=== PATIENT | female | born 1955 | race Two or more races ===

== ENCOUNTER 2019-01-10 09:30 | Outpatient (AMBR) | payer SELFPAY ==
--- NOTE | 2018-12-13 12:52 | PT.ODAYNRPT ---
PT Outpatient Daily Note Date of Service: December 13, 2018 OP Daily Note Visit Reasons: pain Outpatient Physical Therapy Treatment Date: 12/13/18 Subjective: The knee is doing well but hurts on the outside part when she bends it Objective: See F/S for therex MT: PPM into knee flexion Gr 4 to 110 deg x10' Assessment: Good improvement into knee flexion PROM with overpressure to 110 deg today Plan: Continue per POC Length of Time (minutes) of Treatment: 30 Minutes Office Procedures PT Procedures PT Date of Service: 12/13/18 Therapeutic Exercise 15 minutes: Yes Manual Box Feeder 15 minutes: Yes
--- NOTE | 2018-12-13 12:55 | PTNOTE_ITS ---
PT Outpatient Daily Note Date of Service: December 13, 2018 OP Daily Note Visit Reasons: pain Outpatient Physical Therapy Treatment Date: 12/13/18 Subjective: The knee is doing well but hurts on the outside part when she bends it Objective: See F/S for therex MT: PPM into knee flexion Gr 4 to 110 deg x10' Assessment: Good improvement into knee flexion PROM with overpressure to 110 deg today Plan: Continue per POC Length of Time (minutes) of Treatment: 30 Minutes Office Procedures PT Procedures PT Date of Service: 12/13/18 Therapeutic Exercise 15 minutes: Yes Manual Rn Document Improvement Specialist 15 minutes: Yes
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
--- NOTE | 2018-12-31 15:18 | PT.ODAYNRPT ---
PT Outpatient Daily Note Date of Service: December 31, 2018 OP Daily Note Visit Reasons: pain Outpatient Physical Therapy Treatment Date: 12/31/18 Subjective: Pt reports the bump on her L tibia is larger today than last week and it hurts when she puts weight on it. Objective: See F/S for therex Assessment: Exercise tolerance limited by L tibia pain today. PT recommends further diagnostic imaging of L LE to rule in/out what that bump could be. Plan: Continue per POC Length of Time (minutes) of Treatment: 30 Minutes Office Procedures PT Procedures PT Date of Service: 12/13/18 Therapeutic Exercise 15 minutes: Yes Manual Incident Manager 15 minutes: Yes PT Procedures PT Date of Service: 12/27/18 Therapeutic Exercise 15 minutes: Yes Manual Incident Manager 15 minutes: Yes PT Procedures PT Date of Service: 12/31/18 Therapeutic Exercise 30 minutes: Yes
--- NOTE | 2019-01-02 15:05 | PTNOTE_ITS ---
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 Pt reports the bump on her L tibia is larger today than last week and it hurts when she puts weight on it and on the back of the knee when she touches it. Objective: See F/S for therex TENS and MHP x10' Assessment: Exercise tolerance limited by L tibia pain today. PT recommends further diagnostic imaging of L LE to rule in/out what that bump could be. Plan: Continue per POC Length of Time (minutes) of Treatment: 30 Minutes Office Procedures PT Procedures PT Date of Service: 12/13/18 Therapeutic Exercise 15 minutes: Yes Manual Desktop Publishing Associate 15 minutes: Yes PT Procedures PT Date of Service: 12/27/18 Therapeutic Exercise 15 minutes: Yes Manual Desktop Publishing Associate 15 minutes: Yes PT Procedures PT Date of Service: 12/31/18 Therapeutic Exercise 30 minutes: Yes PT Procedures PT Date of Service: 01/02/19 OP Electrical Stimul Unattended: Yes Therapeutic Exercise 15 minutes: Yes
--- NOTE | 2019-01-08 19:17 | PTNOTE_ITS ---
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 Pt reports the bump on her L tibia is hurting up toward the knee more than last week and it hurts when she puts weight on it. Objective: See F/S for therex TENS and MHP x10' Assessment: Exercise tolerance limited by L tibia pain today. PT recommends further diagnostic imaging of L LE to rule in/out what that bump could be. L gastrocnemius tightness is likely due to ambulating on toes to avoid wB. Plan: Continue per POC Length of Time (minutes) of Treatment: 30 Minutes Office Procedures PT Procedures PT Date of Service: 12/13/18 Therapeutic Exercise 15 minutes: Yes Manual Line Construction Engineer 15 minutes: Yes PT Procedures PT Date of Service: 12/27/18 Therapeutic Exercise 15 minutes: Yes Manual Line Construction Engineer 15 minutes: Yes PT Procedures PT Date of Service: 12/31/18 Therapeutic Exercise 30 minutes: Yes PT Procedures PT Date of Service: 01/02/19 OP Electrical Stimul Unattended: Yes Therapeutic Exercise 15 minutes: Yes PT Procedures PT Date of Service: 01/08/19 OP Electrical Stimul Unattended: Yes Therapeutic Exercise 15 minutes: Yes
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
== END 2019-01-11 23:59 | disposition home or self-care (01) ==
PROVIDERS: PCP Internal Medicine; Referring Provider Internal Medicine; Visit Provider Internal Medicine Adolescent Medicine
DX: Z98.890 Other specified postprocedural states (principal)
CPT/HCPCS: 97014; 97110; 97140; G0283

== ENCOUNTER → 2024-07-16 | Outpatient (CLI) | payer MEDICARE, BC, SELFPAY | END | disposition home or self-care (01) | LOC: SWHD 08:56 | PROVIDERS: PCP Internal Medicine; Referring Provider Internal Medicine; Visit Provider Student in an Organized Health Care Education/Training Program | DX: Y84.2 Radiological procedure and radiotherapy as the cause of abnormal reaction of the patient, or of later complication, without mention of misadventure at the time of the procedure (principal); L98.492 Non-pressure chronic ulcer of skin of other sites with fat layer exposed; I10 Essential (primary) hypertension; F41.9 Anxiety disorder, unspecified; C50.412 Malignant neoplasm of upper-outer quadrant of left female breast | CPT/HCPCS: 11042; A9270 ==

== ENCOUNTER → 2024-07-30 | Outpatient (CLI) | payer MEDICARE, BC, SELFPAY | END | disposition home or self-care (01) | PROVIDERS: PCP Internal Medicine; Referring Provider Internal Medicine; Visit Provider Student in an Organized Health Care Education/Training Program | DX: T81.89XD Other complications of procedures, not elsewhere classified, subsequent encounter (principal); Y84.2 Radiological procedure and radiotherapy as the cause of abnormal reaction of the patient, or of later complication, without mention of misadventure at the time of the procedure; L98.492 Non-pressure chronic ulcer of skin of other sites with fat layer exposed; I10 Essential (primary) hypertension; F41.9 Anxiety disorder, unspecified; C50.412 Malignant neoplasm of upper-outer quadrant of left female breast | CPT/HCPCS: 17250; A9270 ==

== ENCOUNTER → 2024-08-06 | Outpatient (CLI) | payer MEDICARE, BC, SELFPAY | END | disposition home or self-care (01) | PROVIDERS: PCP Internal Medicine; Referring Provider Internal Medicine; Visit Provider Student in an Organized Health Care Education/Training Program | DX: T81.89XD Other complications of procedures, not elsewhere classified, subsequent encounter (principal); Y84.2 Radiological procedure and radiotherapy as the cause of abnormal reaction of the patient, or of later complication, without mention of misadventure at the time of the procedure; L98.492 Non-pressure chronic ulcer of skin of other sites with fat layer exposed; I10 Essential (primary) hypertension; F41.9 Anxiety disorder, unspecified; C50.412 Malignant neoplasm of upper-outer quadrant of left female breast | CPT/HCPCS: 15271; 17250; A9270 ==

== ENCOUNTER → 2024-08-13 | Outpatient (CLI) | payer MEDICARE, BC, SELFPAY | END | disposition home or self-care (01) | LOC: SWHD 08:46 | PROVIDERS: PCP Internal Medicine; Referring Provider Internal Medicine; Visit Provider Student in an Organized Health Care Education/Training Program | DX: T81.89XD Other complications of procedures, not elsewhere classified, subsequent encounter (principal); Y84.2 Radiological procedure and radiotherapy as the cause of abnormal reaction of the patient, or of later complication, without mention of misadventure at the time of the procedure; L98.492 Non-pressure chronic ulcer of skin of other sites with fat layer exposed; I10 Essential (primary) hypertension; F41.9 Anxiety disorder, unspecified; C50.412 Malignant neoplasm of upper-outer quadrant of left female breast | CPT/HCPCS: 97597; A9270 ==

== ENCOUNTER → 2024-08-23 | Outpatient (CLI) | payer MEDICARE, SELFPAY | END | disposition home or self-care (01) | LOC: SWHD 10:05 | PROVIDERS: PCP Internal Medicine; Referring Provider Internal Medicine; Visit Provider Surgery | DX: T81.89XD Other complications of procedures, not elsewhere classified, subsequent encounter (principal); Y84.2 Radiological procedure and radiotherapy as the cause of abnormal reaction of the patient, or of later complication, without mention of misadventure at the time of the procedure; L98.492 Non-pressure chronic ulcer of skin of other sites with fat layer exposed; I10 Essential (primary) hypertension; F41.9 Anxiety disorder, unspecified; C50.412 Malignant neoplasm of upper-outer quadrant of left female breast | CPT/HCPCS: 99213; A9270; G0463 ==

== ENCOUNTER → 2024-08-27 | Outpatient (CLI) | payer MEDICARE, SELFPAY | END | disposition home or self-care (01) | LOC: SWHD 11:00 | PROVIDERS: PCP Internal Medicine; Referring Provider Internal Medicine; Visit Provider Surgery | DX: T81.89XD Other complications of procedures, not elsewhere classified, subsequent encounter (principal); Y84.2 Radiological procedure and radiotherapy as the cause of abnormal reaction of the patient, or of later complication, without mention of misadventure at the time of the procedure; L98.492 Non-pressure chronic ulcer of skin of other sites with fat layer exposed; I10 Essential (primary) hypertension; F41.9 Anxiety disorder, unspecified; C50.412 Malignant neoplasm of upper-outer quadrant of left female breast | CPT/HCPCS: 99213; A9270; G0463 ==

== ENCOUNTER → 2024-09-03 | Outpatient (CLI) | payer MEDICARE, SELFPAY | END | disposition home or self-care (01) | LOC: SWHD 10:57 | PROVIDERS: PCP Internal Medicine; Referring Provider Internal Medicine; Visit Provider Student in an Organized Health Care Education/Training Program | DX: T81.89XD Other complications of procedures, not elsewhere classified, subsequent encounter (principal); Y84.2 Radiological procedure and radiotherapy as the cause of abnormal reaction of the patient, or of later complication, without mention of misadventure at the time of the procedure; L98.492 Non-pressure chronic ulcer of skin of other sites with fat layer exposed; I10 Essential (primary) hypertension; F41.9 Anxiety disorder, unspecified; C50.412 Malignant neoplasm of upper-outer quadrant of left female breast | CPT/HCPCS: 97597; A9270 ==

== ENCOUNTER → 2024-09-10 | Outpatient (CLI) | payer MEDICARE, SELFPAY | END | disposition home or self-care (01) | LOC: SWHD 10:40 | PROVIDERS: PCP Internal Medicine; Referring Provider Internal Medicine; Visit Provider Student in an Organized Health Care Education/Training Program | DX: T81.89XA Other complications of procedures, not elsewhere classified, initial encounter (principal); Y84.2 Radiological procedure and radiotherapy as the cause of abnormal reaction of the patient, or of later complication, without mention of misadventure at the time of the procedure; L98.492 Non-pressure chronic ulcer of skin of other sites with fat layer exposed; I10 Essential (primary) hypertension; F41.9 Anxiety disorder, unspecified; C50.412 Malignant neoplasm of upper-outer quadrant of left female breast | CPT/HCPCS: 99213; G0463 ==

== ENCOUNTER → 2024-09-17 | Outpatient (CLI) | payer MEDICARE, BC, SELFPAY | END | disposition home or self-care (01) | LOC: SWHD 10:51 | PROVIDERS: PCP Internal Medicine; Referring Provider Internal Medicine; Visit Provider Student in an Organized Health Care Education/Training Program | DX: T81.89XA Other complications of procedures, not elsewhere classified, initial encounter (principal); Y84.2 Radiological procedure and radiotherapy as the cause of abnormal reaction of the patient, or of later complication, without mention of misadventure at the time of the procedure; L98.492 Non-pressure chronic ulcer of skin of other sites with fat layer exposed; I10 Essential (primary) hypertension; F41.9 Anxiety disorder, unspecified; C50.412 Malignant neoplasm of upper-outer quadrant of left female breast | CPT/HCPCS: 17250; A9270 ==

== ENCOUNTER → 2024-09-24 | Outpatient (CLI) | payer MEDICARE, BC, SELFPAY | END | disposition home or self-care (01) | LOC: SWHD 09:05 | PROVIDERS: PCP Internal Medicine; Referring Provider Internal Medicine; Visit Provider Student in an Organized Health Care Education/Training Program | DX: T81.89XA Other complications of procedures, not elsewhere classified, initial encounter (principal); Y84.2 Radiological procedure and radiotherapy as the cause of abnormal reaction of the patient, or of later complication, without mention of misadventure at the time of the procedure; L98.492 Non-pressure chronic ulcer of skin of other sites with fat layer exposed; I10 Essential (primary) hypertension; F41.9 Anxiety disorder, unspecified; C50.412 Malignant neoplasm of upper-outer quadrant of left female breast | CPT/HCPCS: 17250 ==

== ENCOUNTER → 2024-10-07 | Outpatient (CLI) | payer MEDICARE, BC, SELFPAY ==
[2024-10-07 14:27] LABS: Basophils # (Auto) 0.1 Thou/mm3 (0.0-0.2); Basophils % (Auto) 1 % (0-2.5); Eosinophils # (Auto) 0.1 Thou/mm3 (0.0-0.5); Eosinophils % (Auto) 1 % (0-10); Hematocrit 42.3 % (36.0-46.0); Hemoglobin 14.1 g/dL (12.0-16.0); Immature Granulocytes % (Auto) 1 % (0-0); Immature Granulocytes Auto 0.03 Thou/mm3 (0.00-0.00); Lymphocytes # (Auto) 2.2 Thou/mm3 (1.0-4.8); Lymphocytes % (Auto) 35 % (10-50); Mean Corpuscular HGB Conc 33.3 g/dl (31.0-37.0); Mean Corpuscular Hemoglobin 28.5 pg (25.0-35.0); Mean Corpuscular Volume 86 fL (80-100); Monocytes # (Auto) 0.4 Thou/mm3 (0.0-0.8); Monocytes % (Auto) 7 % (0-12); Neutrophils # (Auto) 3.5 Thou/mm3 (1.8-7.7); Neutrophils % (Auto) 56 % (37-80); Nucleated Red Blood Cell % 0 /100 WBC (0); Platelet Count 241 Thou/mm3 (140-440); RDW Standard Deviation 40.3 fL (36.4-46.3); Red Blood Count 4.94 Miln/mm3 (4.00-5.20); White Blood Count 6.2 Thou/mm3 (3.6-11.0)
[2024-10-07 14:38] LABS: Alanine Aminotransferase 28 U/L (10-49); Albumin, Serum 4.6 gm/dL (3.4-4.8); Albumin/Globulin Ratio 1.8 (1.2-2.2); Alkaline Phosphatase 62 U/L (46-116); Anion Gap 7 (7-16); Aspartate Amino Transferase 27 U/L (0-34); BUN/Creatinine Ratio 13 Ratio (12-20); Bilirubin,Total 0.5 mg/dL (0.3-1.2); Blood Urea Nitrogen 14 mg/dL (9-23); Calcium 10.3 mg/dL (8.3-10.6); Calcium (Corrected) 10.3 mg/dL (8.5-10.1); Carbon Dioxide 29.4 mMol/L (20.0-31.0); Chloride 105 mMol/L (98-107); Creatinine (Component) 1.1 mg/dL (0.6-1.3); Globulin 2.6 gm/dL (2.3-3.5); Glucose 111 mg/dL (74-106); Osmolality,Calculated 282 (275-295); Potassium 4.4 mMol/L (3.4-5.1); Sodium 141 mMol/L (136-145); Total Protein 7.2 gm/dL (5.7-8.2); eGFR 54 See Note
[2024-10-07 14:53] LABS: CA 15-3 7.5 U/mL (<32.4)
== END | disposition home or self-care (01) ==
PROVIDERS: PCP Internal Medicine; Referring Provider Internal Medicine Hematology & Oncology; Visit Provider Internal Medicine Hematology & Oncology
DX: C50.412 Malignant neoplasm of upper-outer quadrant of left female breast (principal)
CPT/HCPCS: 36415; 80053; 85025; 86300

== ENCOUNTER → 2024-10-08 | Outpatient (CLI) | payer MEDICARE, BC, SELFPAY | END | disposition home or self-care (01) | PROVIDERS: PCP Internal Medicine; Referring Provider Internal Medicine; Visit Provider Surgery | DX: T81.89XA Other complications of procedures, not elsewhere classified, initial encounter (principal); Y84.2 Radiological procedure and radiotherapy as the cause of abnormal reaction of the patient, or of later complication, without mention of misadventure at the time of the procedure; L98.492 Non-pressure chronic ulcer of skin of other sites with fat layer exposed; I10 Essential (primary) hypertension; F41.9 Anxiety disorder, unspecified; C50.412 Malignant neoplasm of upper-outer quadrant of left female breast | CPT/HCPCS: 99212; A9270; G0463 ==

== ENCOUNTER 2024-10-09 10:25 | Outpatient (RCR) | payer MEDICARE, BC, SELFPAY | END 2024-10-11 23:59 | disposition home or self-care (01) | LOC: SCTC 10:25 | PROVIDERS: PCP Internal Medicine; Referring Provider Internal Medicine; Visit Provider Nurse Practitioner Family | DX: C50.412 Malignant neoplasm of upper-outer quadrant of left female breast (principal); Z17.0 Estrogen receptor positive status [ER+]; Z17.22 Progesterone receptor negative status; Z17.31 Human epidermal growth factor receptor 2 positive status; Z79.811 Long term (current) use of aromatase inhibitors; Z86.718 Personal history of other venous thrombosis and embolism; Z79.01 Long term (current) use of anticoagulants; M85.89 Other specified disorders of bone density and structure, multiple sites; Z92.3 Personal history of irradiation; Z90.12 Acquired absence of left breast and nipple | CPT/HCPCS: 99212; G0463 ==

== ENCOUNTER → 2024-12-09 | Outpatient (CLI) | payer MEDICARE, BC, SELFPAY ==
--- NOTE | 2024-12-09 | XR_ITS ---
Examination: Lumbar spine, 5 views Technique: Lumbar spine AP, lateral, coned lateral lower lumbar spine, bilateral obliques 5 views Exam date and time: December 01, 2024 1135 hours INDICATIONS: Low back pain months FINDINGS: Moderate osteopenia Moderate diffuse facet arthropathy. Grade 1 anterolisthesis L4 on L5 Diffuse lumbar disc narrowing, moderate L3-L4, L4-L5 No spondylolisthesis IMPRESSION: Diffuse lumbar degenerative disc disease, moderate L3-L4, L4-L5
== END | disposition home or self-care (01) ==
PROVIDERS: PCP Internal Medicine; Referring Provider Internal Medicine; Visit Provider Internal Medicine
DX: M51.369 Other intervertebral disc degeneration, lumbar region without mention of lumbar back pain or lower extremity pain (principal)
CPT/HCPCS: 72110

== ENCOUNTER → 2024-12-13 | Outpatient (CLI) | payer MEDICARE, BC, SELFPAY ==
[2024-12-13 10:45] LABS: Alanine Aminotransferase 22 U/L (10-49); Albumin, Serum 4.2 gm/dL (3.4-4.8); Albumin/Globulin Ratio 1.7 (1.2-2.2); Alkaline Phosphatase 61 U/L (46-116); Anion Gap 10 (7-16); Aspartate Amino Transferase 25 U/L (0-34); BUN/Creatinine Ratio 11 Ratio (12-20); Bilirubin,Total 0.9 mg/dL (0.3-1.2); Blood Urea Nitrogen 12 mg/dL (9-23); Calcium 9.2 mg/dL (8.3-10.6); Calcium (Corrected) 9.2 mg/dL (8.5-10.1); Carbon Dioxide 28.7 mMol/L (20.0-31.0); Chloride 106 mMol/L (98-107); Creatinine (Component) 1.1 mg/dL (0.6-1.3); Globulin 2.5 gm/dL (2.3-3.5); Glucose 136 mg/dL (74-106); Osmolality,Calculated 290 (275-295); Sodium 145 mMol/L (136-145); Total Protein 6.7 gm/dL (5.7-8.2); eGFR 54 See Note
== END | disposition home or self-care (01) ==
LOC: COPL 09:48 → SCTO 09:56
PROVIDERS: PCP Internal Medicine; Referring Provider Nurse Practitioner Family; Visit Provider Nurse Practitioner Family
DX: C50.412 Malignant neoplasm of upper-outer quadrant of left female breast (principal)
CPT/HCPCS: 36415; 80053

== ENCOUNTER → 2024-12-16 | Outpatient (CLI) | payer MEDICARE, BC, SELFPAY ==
--- NOTE | 2024-12-16 08:00 | XR_ITS ---
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 Minimal background breast enhancement Decreased left breast volume with scar formation in the lateral left breast 30 mm The chest wall, presumably post treatment Skin thickening left breast No axillary pathologic lymphadenopathy Kinetic analysis curves demonstrate wash-in at the area of architectural distortion lateral left breast but not rapid washout IMPRESSION: BI-RADS Category 0: Incomplete assessment. 30 mm area of architectural distortion lateral left breast which may represent scar formation from the patient is treated left breast cancer, recommend correlation with bilateral breast sonography and diagnostic mammography follow-up
== END | disposition home or self-care (01) ==
PROVIDERS: PCP Internal Medicine; Referring Provider Nurse Practitioner Family; Visit Provider Nurse Practitioner Family
DX: R92.8 Other abnormal and inconclusive findings on diagnostic imaging of breast (principal); C50.412 Malignant neoplasm of upper-outer quadrant of left female breast
CPT/HCPCS: 77049; A9579; C8908

== ENCOUNTER → 2025-01-24 | Outpatient (CLI) | payer MEDICARE, BC, SELFPAY ==
--- NOTE | 2025-01-24 13:30 | XR_ITS ---
Examination: Breast ultrasound complete, bilateral Date and time of exam: January 24, 2025 1339 hours INDICATIONS: Personal history left breast cancer lumpectomy 2019, MRI December 16, 2024 30 mm area of architectural distortion lateral left breast which may represent scar formation Technique: Real-time grayscale ultrasonographic imaging bilateral breasts, including all 4 quadrants as well as nipple retroareolar and axillary regions. Findings: No cystic or solid mass involving either breast 2:00 scar formation left breast from patient's prior lumpectomy IMPRESSION: BI-RADS Category 3: Probably benign findings One additional 6 month follow-up left breast sonogram is recommended to document stability of architectural distortion 2:00 position left breast at the site of the lumpectomy
== END | disposition home or self-care (01) ==
LOC: CDIM 13:19
PROVIDERS: PCP Internal Medicine; Referring Provider Nurse Practitioner Family; Visit Provider Nurse Practitioner Family
DX: C50.412 Malignant neoplasm of upper-outer quadrant of left female breast (principal)
CPT/HCPCS: 76641

== ENCOUNTER → 2025-01-27 | Outpatient (CLI) | payer MEDICARE, BC, SELFPAY ==
[2025-01-27 13:15] LABS: Collection Type, Urine Clean Catch
[2025-01-27 13:48] LABS: Basophils # (Auto) 0.1 Thou/mm3 (0.0-0.2); Basophils % (Auto) 1 % (0-2.5); Eosinophils # (Auto) 0.1 Thou/mm3 (0.0-0.5); Eosinophils % (Auto) 2 % (0-10); Hematocrit 41.1 % (36.0-46.0); Hemoglobin 13.9 g/dL (12.0-16.0); Immature Granulocytes % (Auto) 1 % (0-0); Immature Granulocytes Auto 0.06 Thou/mm3 (0.00-0.00); Lymphocytes # (Auto) 1.9 Thou/mm3 (1.0-4.8); Lymphocytes % (Auto) 35 % (10-50); Mean Corpuscular HGB Conc 33.8 g/dl (31.0-37.0); Mean Corpuscular Volume 86 fL (80-100); Monocytes # (Auto) 0.4 Thou/mm3 (0.0-0.8); Monocytes % (Auto) 8 % (0-12); Neutrophils # (Auto) 2.9 Thou/mm3 (1.8-7.7); Neutrophils % (Auto) 54 % (37-80); Nucleated Red Blood Cell % 0 /100 WBC (0); Platelet Count 213 Thou/mm3 (140-440); RDW Standard Deviation 41.8 fL (36.4-46.3); White Blood Count 5.3 Thou/mm3 (3.6-11.0)
[2025-01-27 13:59] LABS: Glucose Estimated Average 114 mg/dL (80-131); Hemoglobin A1C 5.6 % Hgb (4.8-6.0)
[2025-01-27 14:02] LABS: Bilirubin,Urine Negative (Negative); Blood,Urine Trace (Negative); Clarity,Urine Clear (Clear/Hazy); Color,Urine Lt-Yellow (Lt Yel-Yel); Glucose, Urine Negative (Negative); Ketones,Urine Negative (Negative); Leukocyte Esterase,Urine Positive (Negative); Nitrite,Urine Negative (Negative); Protein,Urine Negative (Neg - Trace); RBC,Urine 2 /hpf (0-3); Specific Gravity,Urine 1.018 (1.001-1.035); Squamous Epithelial Cell,Urine 1 /hpf (0-5); Urobilinogen,Urine Negative mg/dL (0.0-1.0); WBC,Urine 1 /hpf (0-5)
[2025-01-27 14:09] LABS: Alanine Aminotransferase 25 U/L (10-49); Albumin, Serum 4.2 gm/dL (3.4-4.8); Albumin/Globulin Ratio 1.8 (1.2-2.2); Alkaline Phosphatase 65 U/L (46-116); Anion Gap 9 (7-16); Aspartate Amino Transferase 26 U/L (0-34); BUN/Creatinine Ratio 14 Ratio (12-20); Bilirubin,Total 0.5 mg/dL (0.3-1.2); Blood Urea Nitrogen 14 mg/dL (9-23); Calcium 9.4 mg/dL (8.3-10.6); Calcium (Corrected) 9.4 mg/dL (8.5-10.1); Carbon Dioxide 30.2 mMol/L (20.0-31.0); Cardiac Risk Estimate 3.7 RATIO (3.7-5.6); Chloride 104 mMol/L (98-107); Cholesterol 180 mg/dL (132-200); Globulin 2.4 gm/dL (2.3-3.5); Glucose 115 mg/dL (74-106); HDL Cholesterol 49 mg/dL (40-60); LDL Cholesterol,Calculated 106 mg/dL (0-130); Osmolality,Calculated 286 (275-295); Potassium 4.6 mMol/L (3.4-5.1); Sodium 143 mMol/L (136-145); Thyroid Stimulating Hormone 1.13 uIU/mL (0.55-4.78); Total Protein 6.6 gm/dL (5.7-8.2); Triglycerides 127 mg/dL (30-150); Uric Acid 7.6 mg/dL (3.1-7.8); eGFR > 60 See Note
[2025-01-27 14:14] LABS: Vitamin B12 514 pg/mL (211-911); Vitamin D 25 Hydroxy Total 26.7 ng/mL (7.3-40.2)
== END | disposition home or self-care (01) ==
LOC: COPL 12:05
PROVIDERS: PCP Internal Medicine; Referring Provider Internal Medicine; Visit Provider Internal Medicine
DX: N20.0 Calculus of kidney (principal); I10 Essential (primary) hypertension; K21.9 Gastro-esophageal reflux disease without esophagitis; I73.9 Peripheral vascular disease, unspecified; E78.2 Mixed hyperlipidemia; M54.50 Low back pain, unspecified; R73.01 Impaired fasting glucose
CPT/HCPCS: 36415; 80053; 80061; 81001; 82306; 82607; 83036; 84443; 84550; 85025

== ENCOUNTER 2025-04-08 09:56 | Outpatient (RCR) | payer MEDICARE, BC, SELFPAY | END 2025-04-13 23:59 | disposition home or self-care (01) | LOC: SCTC 09:56 | PROVIDERS: PCP Internal Medicine; Referring Provider Internal Medicine; Visit Provider Nurse Practitioner Family | DX: C50.412 Malignant neoplasm of upper-outer quadrant of left female breast (principal); Z17.0 Estrogen receptor positive status [ER+]; Z17.22 Progesterone receptor negative status; Z17.32 Human epidermal growth factor receptor 2 negative status; Z79.811 Long term (current) use of aromatase inhibitors; Z90.12 Acquired absence of left breast and nipple; Z92.3 Personal history of irradiation; Z86.718 Personal history of other venous thrombosis and embolism; Z79.01 Long term (current) use of anticoagulants; M85.89 Other specified disorders of bone density and structure, multiple sites; M79.7 Fibromyalgia; I10 Essential (primary) hypertension | CPT/HCPCS: 99212; G0463 ==

== ENCOUNTER → 2025-05-19 | Outpatient (CLI) | payer MEDICARE, BC, SELFPAY ==
--- NOTE | 2025-05-19 12:38 | XR_ITS ---
Examination: Knee, right , 3 views Technique: Knee AP, lateral, oblique 3 views Date and time of exam: May 19, 2025, 1302 hours INDICATIONS: Patient fell one month ago followed by knee pain joint popping. FINDINGS: Prominent osteopenia Moderate narrowing medial patellofemoral joints No fracture Small knee effusion IMPRESSION: No fracture
[2025-05-19 13:49] LABS: Collection Type, Urine Clean Catch
[2025-05-19 14:47] LABS: Basophils # (Auto) 0.1 Thou/mm3 (0.0-0.2); Basophils % (Auto) 1 % (0-2.5); Eosinophils # (Auto) 0.0 Thou/mm3 (0.0-0.5); Eosinophils % (Auto) 1 % (0-10); Hematocrit 43.5 % (36.0-46.0); Hemoglobin 14.8 g/dL (12.0-16.0); Immature Granulocytes Auto 0.04 Thou/mm3 (0.00-0.00); Lymphocytes # (Auto) 2.0 Thou/mm3 (1.0-4.8); Lymphocytes % (Auto) 31 % (10-50); Mean Corpuscular HGB Conc 34.0 g/dl (31.0-37.0); Mean Corpuscular Hemoglobin 29.7 pg (25.0-35.0); Mean Corpuscular Volume 87 fL (80-100); Monocytes # (Auto) 0.4 Thou/mm3 (0.0-0.8); Monocytes % (Auto) 7 % (0-12); Neutrophils # (Auto) 3.7 Thou/mm3 (1.8-7.7); Neutrophils % (Auto) 60 % (37-80); Nucleated Red Blood Cell # 0.00 Thou/mm3 (0.00-0.00); Nucleated Red Blood Cell % 0 /100 WBC (0); Platelet Count 221 Thou/mm3 (140-440); RDW Standard Deviation 42.0 fL (36.4-46.3); Red Blood Count 4.98 Miln/mm3 (4.00-5.20); White Blood Count 6.3 Thou/mm3 (3.6-11.0)
[2025-05-19 14:49] LABS: Bilirubin,Urine Negative (Negative); Blood,Urine Trace (Negative); Clarity,Urine Clear (Clear/Hazy); Color,Urine Yellow (Lt Yel-Yel); Culture Indicated,Urine Not Indicated; Glucose, Urine Negative (Negative); Hyaline Casts,Urine < 1 /hpf (0-1); Ketones,Urine Negative (Negative); Leukocyte Esterase,Urine Negative (Negative); Nitrite,Urine Negative (Negative); PH,Urine 6.0 (5.0-7.0); Protein,Urine Negative (Neg - Trace); RBC,Urine 5 /hpf (0-3); Specific Gravity,Urine 1.019 (1.001-1.035); Squamous Epithelial Cell,Urine 1 /hpf (0-5); Urobilinogen,Urine Negative mg/dL (0.0-1.0); WBC,Urine 2 /hpf (0-5)
[2025-05-19 15:02] LABS: Alanine Aminotransferase 29 U/L (10-49); Albumin, Serum 4.7 gm/dL (3.4-4.8); Albumin/Globulin Ratio 1.7 (1.2-2.2); Alkaline Phosphatase 66 U/L (46-116); Anion Gap 10 (7-16); Aspartate Amino Transferase 33 U/L (0-34); BUN/Creatinine Ratio 12 Ratio (12-20); Bilirubin,Total 0.8 mg/dL (0.3-1.2); Blood Urea Nitrogen 13 mg/dL (9-23); Calcium 9.9 mg/dL (8.3-10.6); Calcium (Corrected) 9.9 mg/dL (8.5-10.1); Carbon Dioxide 28.6 mMol/L (20.0-31.0); Chloride 103 mMol/L (98-107); Creatinine (Component) 1.1 mg/dL (0.6-1.3); Globulin 2.8 gm/dL (2.3-3.5); Glucose 111 mg/dL (74-106); Osmolality,Calculated 284 (275-295); Potassium 4.0 mMol/L (3.4-5.1); Sodium 142 mMol/L (136-145); Thyroid Stimulating Hormone 0.90 uIU/mL (0.55-4.78); Total Protein 7.5 gm/dL (5.7-8.2); eGFR 53 See Note
== END | disposition home or self-care (01) ==
PROVIDERS: PCP Internal Medicine; Referring Provider Internal Medicine; Visit Provider Internal Medicine
DX: M25.561 Pain in right knee (principal); I73.9 Peripheral vascular disease, unspecified; E78.2 Mixed hyperlipidemia; R73.01 Impaired fasting glucose; N18.30 Chronic kidney disease, stage 3 unspecified; G25.0 Essential tremor
CPT/HCPCS: 36415; 73562; 80053; 81001; 84443; 85025

== ENCOUNTER → 2025-05-23 | Outpatient (CLI) | payer MEDICARE, BC, SELFPAY ==
[2025-05-28 06:33] LABS: Fecal Globin Result DETECTED (NOT DETECTED)
== END | disposition home or self-care (01) ==
LOC: SLDO 12:22
PROVIDERS: PCP Internal Medicine; Referring Provider Internal Medicine; Visit Provider Internal Medicine
DX: Z12.11 Encounter for screening for malignant neoplasm of colon (principal)
CPT/HCPCS: 82274; G0328

== ENCOUNTER → 2025-06-03 | Outpatient (CLI) | payer MEDICARE, BC, SELFPAY ==
[2025-06-03 12:32] LABS: Collection Type, Urine Clean Catch
[2025-06-03 13:34] LABS: Bilirubin,Urine Negative (Negative); Blood,Urine Trace (Negative); Clarity,Urine Clear (Clear/Hazy); Color,Urine Yellow (Lt Yel-Yel); Culture Indicated,Urine Not Indicated; Glucose, Urine Negative (Negative); Hyaline Casts,Urine < 1 /hpf (0-1); Ketones,Urine Negative (Negative); Leukocyte Esterase,Urine Positive (Negative); Nitrite,Urine Negative (Negative); PH,Urine 6.0 (5.0-7.0); Protein,Urine Negative (Neg - Trace); RBC,Urine 7 /hpf (0-3); Specific Gravity,Urine 1.021 (1.001-1.035); Squamous Epithelial Cell,Urine 1 /hpf (0-5); Urobilinogen,Urine 2.0 mg/dL (0.0-1.0); WBC,Urine 3 /hpf (0-5)
== END | disposition home or self-care (01) ==
LOC: SLDO 12:21
PROVIDERS: Referring Provider Internal Medicine; Visit Provider Internal Medicine
DX: N39.0 Urinary tract infection, site not specified (principal)
CPT/HCPCS: 81001

== ENCOUNTER → 2025-07-01 | Outpatient (CLI) | payer MEDICARE, BC, SELFPAY ==
--- NOTE | 2025-07-01 13:05 | XR_ITS ---
Examination: Abdomen sonogram, Limited Date and time of exam: July 01, 2025, 1322 hours INDICATIONS: Upper abdominal pain several months Technique: Real-time menjivar scale transabdominal sonographic images of the upper abdomen obtained. Findings: Absent gallbladder Normal common bile duct 0.3 cm Pancreatic head 2.8 cm Liver 14.5 cm fatty infiltration no focal liver lesions Normal hepatopetal portal venous flow Patent IVC IMPRESSION: Absent gallbladder Normal common bile duct
--- NOTE | 2025-07-01 13:19 | XR_ITS ---
Examination: Abdomen AP single view Technique: AP portable supine abdomen, single view Exam date and time: July 01, 2025, 1424 hours INDICATIONS: Abdominal pain and distention beginning 3 months ago Findings: Moderate stool throughout the colon No obstruction No free air Surgical clips upper right abdomen IMPRESSION: Moderate stool throughout the colon
[2025-07-01 15:33] LABS: Collection Type, Urine Clean Catch
[2025-07-01 16:35] LABS: Basophils # (Auto) 0.1 Thou/mm3 (0.0-0.2); Basophils % (Auto) 1 % (0-2.5); Eosinophils # (Auto) 0.0 Thou/mm3 (0.0-0.5); Eosinophils % (Auto) 1 % (0-10); Hematocrit 40.3 % (36.0-46.0); Hemoglobin 13.5 g/dL (12.0-16.0); Immature Granulocytes Auto 0.03 Thou/mm3 (0.00-0.00); Lymphocytes # (Auto) 2.0 Thou/mm3 (1.0-4.8); Lymphocytes % (Auto) 28 % (10-50); Mean Corpuscular HGB Conc 33.5 g/dl (31.0-37.0); Mean Corpuscular Hemoglobin 29.2 pg (25.0-35.0); Mean Corpuscular Volume 87 fL (80-100); Monocytes # (Auto) 0.6 Thou/mm3 (0.0-0.8); Monocytes % (Auto) 8 % (0-12); Neutrophils # (Auto) 4.3 Thou/mm3 (1.8-7.7); Neutrophils % (Auto) 62 % (37-80); Nucleated Red Blood Cell # 0.00 Thou/mm3 (0.00-0.00); Nucleated Red Blood Cell % 0 /100 WBC (0); Platelet Count 200 Thou/mm3 (140-440); RDW Standard Deviation 40.9 fL (36.4-46.3); Red Blood Count 4.62 Miln/mm3 (4.00-5.20); White Blood Count 7.0 Thou/mm3 (3.6-11.0)
[2025-07-01 16:43] LABS: Bilirubin,Urine Negative (Negative); Blood,Urine Trace (Negative); Clarity,Urine Clear (Clear/Hazy); Color,Urine Lt-Yellow (Lt Yel-Yel); Glucose, Urine Negative (Negative); Ketones,Urine Negative (Negative); Leukocyte Esterase,Urine Positive (Negative); Nitrite,Urine Negative (Negative); PH,Urine 6.0 (5.0-7.0); Protein,Urine Negative (Neg - Trace); RBC,Urine 1 /hpf (0-3); Specific Gravity,Urine 1.010 (1.001-1.035); Squamous Epithelial Cell,Urine < 1 /hpf (0-5); Urobilinogen,Urine Negative mg/dL (0.0-1.0); WBC,Urine 2 /hpf (0-5)
[2025-07-01 16:52] LABS: Alanine Aminotransferase 20 U/L (10-49); Albumin, Serum 4.6 gm/dL (3.4-4.8); Albumin/Globulin Ratio 2.1 (1.2-2.2); Alkaline Phosphatase 55 U/L (46-116); Amylase 119 U/L (30-118); Anion Gap 9 (7-16); Aspartate Amino Transferase 26 U/L (0-34); BUN/Creatinine Ratio 12 Ratio (12-20); Bilirubin,Total 0.5 mg/dL (0.3-1.2); Blood Urea Nitrogen 12 mg/dL (9-23); Calcium 9.4 mg/dL (8.3-10.6); Calcium (Corrected) 9.4 mg/dL (8.5-10.1); Carbon Dioxide 28.1 mMol/L (20.0-31.0); Chloride 106 mMol/L (98-107); Creatinine (Component) 1.0 mg/dL (0.6-1.3); Globulin 2.2 gm/dL (2.3-3.5); Glucose 95 mg/dL (74-106); Lipase 53 U/L (12-53); Osmolality,Calculated 284 (275-295); Potassium 4.5 mMol/L (3.4-5.1); Sodium 143 mMol/L (136-145); Total Protein 6.8 gm/dL (5.7-8.2); eGFR 60 See Note
== END | disposition home or self-care (01) ==
LOC: CDIM 13:00 → COPL 14:12
PROVIDERS: PCP Internal Medicine; Referring Provider Specialist; Visit Provider Radiology Diagnostic Radiology
DX: K59.00 Constipation, unspecified (principal); Z90.49 Acquired absence of other specified parts of digestive tract; R11.0 Nausea; R10.32 Left lower quadrant pain; R10.13 Epigastric pain
CPT/HCPCS: 36415; 74018; 76705; 80053; 81001; 82150; 83690; 85025